=== PATIENT | male | born 2000 | race Caucasian/White ===

== ENCOUNTER 2022-06-06 17:52 | Emergency (ER) | payer BC, SELFPAY ==
[2022-06-06 18:02] VITALS: BP 149/86; PULSE 88; RESP 16; TEMP 36.5; O2SAT 100
--- NOTE | 2022-06-06 19:13 | ED.URI ---
HPI - URI/Sore Throat General Chief Complaint: Upper Respiratory Infection Stated Complaint: cough, sinus drainage, lower back pain Time Seen by Provider: 06/06/22 19:10 Source: patient, RN notes reviewed and old records reviewed Mode of arrival: ambulatory Limitations: no limitations History of Present Illness HPI Narrative: 22year old male who presents to [facility] care with complaints of cough, runny nose and sneezing since Friday. Patient reports that his cough is dry and harsh and he has pain to his left rib and scapular region when he coughs. He reports that he has not had a fever and he stats that he has been taking Mucinex and cough syrup for his symptoms. Patient reports that he has had Covid vaccinations and flu shot MD elicited complaint: cough, rhinorrhea, nasal congestion and other (pain left rib and scapula with cough) Pertinent past history: seasonal allergies Onset (ago): day(s) (3) Able to tolerate fluids by mouth: Yes Treatments prior to arrival: other (Mucinex and cough syrup) Related Data Home Medications Medication Instructions Recorded Confirmed dextroamphetamine-amphetamine 10 10 mg PO DAILY 06/06/22 06/06/22 mg tablet (Adderall) Allergies Allergy/AdvReac Type Severity Reaction Status Date / Time No Known Allergies Allergy Unverified 06/06/22 18:03 Review of Systems Review of Systems: CONSTITUTIONAL: Denies malaise, chills, sweats, or fever. EYES: Denies visual changes, redness, or discharge. ENT: Reports rhinorrhea, congestion, no sinus pain, otalgia or sore throat. CARDIOVASCULAR: Denies chest pain, palpitations, or edema. RESPIRATORY: Reports cough.? Denies dyspnea.reports pain to left rib area and left scapula with cough GASTROINTESTINAL: Denies abdominal pain, nausea, vomiting, diarrhea SKIN: Denies rash or itching. MUSCULOSKELETAL: Denies myalgia. NEUROLOGIC: Denies headache. All systems reviewed & are unremarkable except as noted in HPI and below PMFSH Past Medical History Medical History (Updated 06/11/22 @ 14:36 by Addis Palacio NP) ADHD (attention deficit hyperactivity disorder) JAYLENE (generalized anxiety disorder) Pollen allergies Family History Family History Father Hypertension Mother Hypertension Depression Grandparent Diabetes mellitus Social History Social History (Updated 08/09/21 @ 15:39 by Penelope Hernandez) Social History: Single Smoking status: Never smoker Second hand tobacco smoke exposure: No Alcohol intake: current Alcohol use details: Socially Substance use: never Substance use type: does not use Gender identity (if verbalized by the patient): Male Sexual Orientation (if Verbalized by the Patient): Straight or Heterosexual Comments At time of signature, agree with nursing past medical, surgical, social and family history. There is no relevant family history pertinent to the presenting complaint Exam Narrative: GENERAL: Well-appearing, well-nourished, and in no acute distress. HEAD: Normocephalic EYES: PERRLA, conjunctivae clear ENT: Nares clear, turbinates edematous and erythematous, clear discharge. Mucous membranes moist. TM pearly mata with dull light reflex bilaterally; no tragal tenderness. Oropharynx erythematous without lesions. Tonsils not enlarged and without exudate, no drooling, no hoarseness, no trismus, uvula midline.post nasal drainage NECK: Supple. No lymphadenopathy CHEST: Clear to auscultation, breath sounds equal. No wheezing, rhonchi, rales, or stridor. No respiratory distress, speaks in full sentences.harsh cough SAO2 100% on room air HEART: Regular rate and rhythm. No murmur heard. SKIN: Warm, dry, no rash. NEURO: Alert and oriented x3. PSYCH: Normal mood and affect Course Course Emergency Course: Patient is aware of diagnosis, understands and agrees to treatment plan.? Anticipatory guidance given.? Patient agrees to
== END 2022-06-06 19:33 | disposition home or self-care (01) ==
PROVIDERS: Emergency Provider Registered Nurse; PCP Family Medicine
DX: J06.9 Acute upper respiratory infection, unspecified (principal); R05.1 Acute cough; M94.0 Chondrocostal junction syndrome [Tietze]
CPT/HCPCS: 99213; G0463

== ENCOUNTER 2022-08-26 11:04 | Emergency (ER) | payer BC, SELFPAY ==
[2022-08-26 11:16] VITALS: BP 126/82; PULSE 83; RESP 16; TEMP 37.3; O2SAT 100
--- NOTE | 2022-08-26 11:20 | ED.URI ---
HPI - URI/Sore Throat General Chief Complaint: Upper Respiratory Infection Stated Complaint: cough, sore throat Time Seen by Provider: 08/26/22 11:20 Source: patient Mode of arrival: ambulatory Limitations: no limitations History of Present Illness HPI Narrative: Rigoberto is a 22-year-old male patient presenting to clinic today with complaints of cough and sore throat times 2-3 days. He denies any known fever or chills. He denies any known exposure day by 1 COVID, strep, or influenza. MD elicited complaint: sore throat and nasal congestion Related Data Home Medications Medication Instructions Recorded Confirmed dextroamphetamine-amphetamine 10 10 mg PO DAILY 06/06/22 08/26/22 mg tablet (Adderall) Allergies Allergy/AdvReac Type Severity Reaction Status Date / Time No Known Allergies Allergy Unverified 08/26/22 11:20 Review of Systems Review of Systems: Pertinent positives per HPI. Patient denies any fever, chills, rash, headache, visual changes, dizziness, cough, shortness of breath, chest pain, palpitations, nausea, vomiting, diarrhea, constipation, abdominal pain, or any urinary issues. PMFSH Past Medical History Medical History ADHD (attention deficit hyperactivity disorder) JAYLENE (generalized anxiety disorder) Pollen allergies Family History Family History Father Hypertension Mother Hypertension Depression Grandparent Diabetes mellitus Social History Social History Social History: Single Smoking status: Never smoker Second hand tobacco smoke exposure: No Alcohol intake: current Alcohol use details: Socially Substance use: never Substance use type: does not use Living arrangements: with family Occupation/Education: occupation Gender identity (if verbalized by the patient): Male Sexual Orientation (if Verbalized by the Patient): Straight or Heterosexual Comments At the time of my signature, I reviewed and agree with the nursing past medical, surgical, social, and family history. There is no relevant family history pertinent to the patient complaint. Exam Narrative: General: Well-developed, well nourished, in no apparent distress Head: Normocephalic, atraumatic Eyes: Pupils equally round and reactive to light bilaterally, EOM intact, sclera and conjunctive clear, no discharge, lids normal Ears: TMs intact and clear, ear canals clear, no drainage, grossly hearing normal. Nose: Nares patent, clear nasal discharge, no inflammation, no sinus tenderness. Mouth: Oral pharynx without lesions or masses, good dentition, MMM. Oropharynx mildly red with bilateral tonsillar enlargement without exudate Neck: Supple, trachea midline, no enlargement of anterior or posterior cervical nodes, no thyroid masses or goiter palpable. Cardio: Regular rate and rhythm, s1 and s2 normal, no murmur appreciated. Resp: Clear to auscultation bilaterally, no rhonchi, rales, wheezing or rubs Course Course Emergency Course: Portions of this record may have been created with voice recognition software. Level of Care: Express Care Visit Vital Signs Vital signs: Vital Signs Temperature 37.3 C 08/26/22 11:16 Pulse Rate 83 08/26/22 11:16 Respiratory Rate 16 08/26/22 11:16 Blood Pressure 126/82 08/26/22 11:16 Pulse Oximetry 100 08/26/22 11:16 Oxygen Delivery Room Air 08/26/22 11:16 Temperature 37.3 C 08/26/22 11:16 Pulse Rate 83 08/26/22 11:16 Respiratory Rate 16 08/26/22 11:16 Blood Pressure 126/82 08/26/22 11:16 Pulse Oximetry 100 08/26/22 11:16 Oxygen Delivery Room Air 08/26/22 11:16 Vital signs reviewed MDM - URI/Sore Throat MDM Narrative Medical decision making narrative: At the time of visit patient is resting comfortably on the exam table. Strep screen
== END 2022-08-26 11:42 | disposition home or self-care (01) ==
PROVIDERS: Emergency Provider Nurse Practitioner Family
DX: J02.9 Acute pharyngitis, unspecified (principal); J06.9 Acute upper respiratory infection, unspecified; R05.9 Cough, unspecified; F90.9 Attention-deficit hyperactivity disorder, unspecified type
CPT/HCPCS: 87081; 87880; 99213; G0463

== ENCOUNTER 2023-12-28 11:00 | Emergency (ER) | payer BC, SELFPAY ==
[2023-12-28 11:08] VITALS: BP 126/83; PULSE 98; RESP 16; TEMP 37.2; O2SAT 100
--- NOTE | 2023-12-28 11:13 | ED.URI ---
HPI - URI/Sore Throat General Chief Complaint: Upper Respiratory Infection Stated Complaint: Sinus Infection Symptoms Time Seen by Provider: 12/28/23 11:10 Source: patient Mode of arrival: ambulatory Limitations: no limitations History of Present Illness HPI Narrative: Rigoberto is a 23-year-old male patient presenting to the clinic today with complaints of sinus congestion, sinus pressure, and green nasal drainage. Reports symptoms started 4 days ago. Denies any fever or chills. Has started taking Bev D and that has helped the symptoms some. States he is going on vacation next week and is hoping to stop the sinus infection prior to that. MD elicited complaint: sore throat and nasal congestion Related Data Home Medications Medication Instructions Recorded Confirmed dextroamphetamine-amphetamine 10 10 mg PO DAILY 06/06/22 03/11/23 mg tablet (Adderall) Allergies Allergy/AdvReac Type Severity Reaction Status Date / Time No Known Allergies Allergy Verified 12/28/23 11:13 Review of Systems Review of Systems: Pertinent positives per HPI. Patient denies any fever, chills, rash, headache, visual changes, dizziness, cough, shortness of breath, chest pain, palpitations, nausea, vomiting, diarrhea, constipation, abdominal pain, or any urinary issues. [facility] Past Medical History Medical History ADHD (attention deficit hyperactivity disorder) JAYLENE (generalized anxiety disorder) Pollen allergies Family History Family History Father Hypertension Mother Hypertension Depression Grandparent Diabetes mellitus Social History Social History Social History: Single Smoking status: Never smoker Second hand tobacco smoke exposure: No Alcohol intake: current Alcohol use details: Socially Substance use: never Substance use type: does not use Living arrangements: with family Occupation/Education: occupation Gender identity (if verbalized by the patient): Male Sexual Orientation (if Verbalized by the Patient): Straight or Heterosexual Comments At the time of my signature, I reviewed and agree with the nursing past medical, surgical, social, and family history. There is no relevant family history pertinent to the patient complaint. Exam Narrative: General: Well-developed, well nourished, in no apparent distress Head: Normocephalic, atraumatic Eyes: Pupils equally round and reactive to light bilaterally, EOM intact, sclera and conjunctive clear, no discharge, lids normal Ears: TMs intact and congested, ear canals clear, no drainage, grossly hearing normal. Nose: Nares patent, clear nasal discharge, moderate to severe inflammation, maxillary sinus tenderness. Mouth: Oral pharynx without lesions or masses, good dentition, MMM. Neck: Supple, trachea midline, no enlargement of anterior or posterior cervical nodes, no thyroid masses or goiter palpable. Cardio: Regular rate and rhythm, s1 and s2 normal, no murmur appreciated. Resp: Clear to auscultation bilaterally, no rhonchi, rales, wheezing or rubs Course Course Emergency Course: Portions of this record may have been created with voice recognition software. Level of Care: Express Care Visit Vital Signs Vital signs: Vital Signs Temperature 37.2 C 12/28/23 11:08 Pulse Rate 98 12/28/23 11:08 Respiratory Rate 16 12/28/23 11:08 Blood Pressure 126/83 12/28/23 11:08 Pulse Oximetry 100 12/28/23 11:08 Temperature 37.2 C 12/28/23 11:08 Pulse Rate 98 12/28/23 11:08 Respiratory Rate 16 12/28/23 11:08 Blood Pressure 126/83 12/28/23 11:08 Pulse Oximetry 100 12/28/23 11:08 Vital signs reviewed MDM - URI/Sore Throat MDM Narrative Medical decision making narrative: At the time of visit patient is resting comfortably on the exam
== END 2023-12-28 11:16 | disposition home or self-care (01) ==
PROVIDERS: Emergency Provider Nurse Practitioner Family; PCP Nurse Practitioner Family
DX: J32.9 Chronic sinusitis, unspecified (principal); F90.9 Attention-deficit hyperactivity disorder, unspecified type
CPT/HCPCS: 99213; G0463

== ENCOUNTER 2024-11-08 16:36 | Emergency (ER) | payer BC, SELFPAY ==
[2024-11-08 16:51] VITALS: BP 123/78; PULSE 87; RESP 16; TEMP 36.3; O2SAT 100
[2024-11-08 17:20] LABS: EDINFLUASCREEN Negative (Negative); EDINFLUBSCREEN Negative (Negative); EDSTREPNEGPOS1 Negative (Negative)
--- NOTE | 2024-11-08 17:30 | ED_ITS ---
HPI - URI/Sore Throat General Chief Complaint: Upper Respiratory Infection Stated Complaint: sinus congestion Time Seen by Provider: 11/08/24 17:20 Source: patient and RN notes reviewed Mode of arrival: ambulatory Limitations: no limitations History of Present Illness HPI Narrative: 24-year-old male presents Express Care complaining of upper respiratory symptoms for 10 days. Patient reports having a sore throat, productive cough, nasal congestion, voice hoarseness. Patient has usesing Flonase, Zyrtec, the Bev D over [id number] for symptom management. He says he is starting to feel better however symptoms are persisting. He reports coughing up brown yellowish sputum. He says his cough is worse in the morning gets better throughout the day. He denies any ear pain, chest pain, shortness of breath, fevers, body aches, chills. Significant past medical history includes ADHD. Patient took a rapid COVID at home and said it was negative. Related Data Home Medications ?Medication ?Instructions ?Recorded ?Confirmed ?Last Taken ?Type dextroamphetamine-amphetamine 10 15 mg PO DAILY 01/12/24 11/08/24 Unknown History mg tablet (Adderall) Allergies Allergy/AdvReac Type Severity Reaction Status Date / Time No Known Allergies Allergy Verified 11/08/24 16:52 Review of Systems Review of Systems: CONSTITUTIONAL: Denies fever, chills, or sweats. EYES: Denies visual changes, redness, or discharge. ENT: Denies rhinorrhea or otalgia. Positive for sore throat and congestion. CARDIOVASCULAR: Denies chest pain, palpitations, or edema. RESPIRATORY: Positive for productive cough. Negative for dyspnea. GASTROINTESTINAL: Denies abdominal pain, nausea, vomiting, or diarrhea. GENITOURINARY: Denies dysuria or hematuria. SKIN: Denies rash or itching. MUSCULOSKELETAL: Denies back pain, joint pain, or myalgia. NEUROLOGIC: Denies headache, numbness, or weakness. PSYCHIATRIC: Denies anxiety or depression. All other systems reviewed are negative, except as documented in HPI. [facility] Past Medical History Medical History ADHD (attention deficit hyperactivity disorder) Pollen allergies JAYLENE (generalized anxiety disorder) Family History Family History Father Hypertension Mother Hypertension Depression Grandparent Diabetes mellitus Social History Social History Social History: Single Smoking status: Never smoker Second hand tobacco smoke exposure: No Alcohol intake: current Alcohol use details: Socially Substance use: never Substance use type: does not use Living arrangements: with family Occupation/Education: occupation Gender identity (if verbalized by the patient): Male Sexual Orientation (if Verbalized by the Patient): Straight or Heterosexual Comments At the time of my signature, I reviewed and agree with the nursing past medical, surgical, social, and family history. There is no relevant family history pertinent to the patient complaint. Exam Narrative: GENERAL: This is a well-nourished, well-developed adult, in no apparent distress. They are non ill-appearing, nontoxic appearing. HEAD: normocephalic, atraumatic. EYES: Sclera clear/white. Vision is grossly intact. Extraocular movements intact EARS: External ears normal, auditory canals clear and without drainage, TMs normal without perforation. Hearing grossly intact. NOSE: External nose normal with no obvious nasal discharge, nasal turbinates are erythematous, no rhinorrhea. THROAT: Mucous membranes moist, posterior pharynx clear without redness or swelling. No exudate. Postnasal drip present. Uvula midline NECK: Neck supple, non-tender without lymphadenopathy, masses or thyromegaly. CARDIOVASCULAR: Regular rate and rhythm without murmurs, gallops, or rubs. RESPIRATORY: Clear to auscultation. Breath sounds equal bilaterally. No wheezes, rales, or rhonchi. SKIN: warm, Dry, intact with no suspicious lesions or rash, good texture and turgor. NEURO: awake, alert, and oriented to person, place and time. There were no obvious focal neurologic abnormalities. EXTREMITIES: No joint tenderness, effusion, or edema noted. Course Course Level of Care: Express Care Visit Vital Signs Vital signs: Vital Signs Temperature 97.4 F L 11/08/24 16:51 Pulse Rate 87 11/08/24 16:51 Respiratory Rate 16 11/08/24 16:51 Blood Pressure 123/78 11/08/24 16:51 Pulse Oximetry 100 11/08/24 16:51 Oxygen Delivery Room Air 04/21/25 16:51 Temperature 97.4 F L 11/08/24 16:51 Pulse Rate 87 11/08/24 16:51 Respiratory Rate 16 11/08/24 16:51 Blood Pressure 123/78 11/08/24 16:51 Pulse Oximetry 100 11/08/24 16:51 Oxygen Delivery Room Air 11/08/24 16:51 Reviewed MDM - URI/Sore Throat MDM Narrative Medical decision making narrative: Rapid influenza and rapid strep were negative. Throat culture is pending. Given patient's length of symptoms it is likely that he has a bacterial sinusitis. Will treat empirically with Augmentin. Discussed physical exam findings. Advised supportive measures and signs/symptoms to go to the ER. Pt is appropriate for outpt treatment and f/u. Differential Diagnosis Differential diagnosis: Likely upper respiratory infection, sinusitis and pharyngitis Lab Data Attestation: I reviewed the patient's lab results. Labs: Lab Results 11/08/24 Range/Units 16:56 POC Influenza A Ag Negative (Negative) POC Influenza B Ag Negative (Negative) POC Grp A Strep Screen Negative (Negative) Critical Care Time Critical Care Time Critical Care Time: No Discharge Plan Discharge Clinical Impression: Rhinosinusitis Patient Disposition: Home Condition: Stable Instructions: Antibiotic Form, Rhinosinusitis (ED) Additional Instructions: Your flu swab is negative. Rapid strep is negative. A throat culture will be sent off and you will be contacted if the culture is positive. Take the antibiotics as directed and complete the course even if you start to feel better. You may use a Neti pot saline rinse 3 times a day. Continue to take Tylenol or Motrin for pain. Use a humidifier or vaporizer at night. Drink plenty of water. 8-10 glasses per day. Use flonase 2 times per day for 5 days then as needed Take mucinex 2 times per day and be sure to take with 8oz of water. Follow up with Primary provider if not getting better. Please go to the ER if you develop worsening symptoms or any other concerns. Patient Language: Czech Prescriptions: New amoxicillin-pot clavulanate 875-125 mg tablet 1 tablet PO Q12H 7 Days Qty: 14 0RF No Action dextroamphetamine-amphetamine [Adderall] 10 mg tablet 15 mg PO DAILY Follow-up/Referrals: Juju Hdez, [employer] [Primary Care Provider] - Time of Disposition: 17:27
== END 2024-11-08 17:30 | disposition home or self-care (01) ==
PROVIDERS: PCP Nurse Practitioner Family
DX: J32.9 Chronic sinusitis, unspecified (principal); F90.9 Attention-deficit hyperactivity disorder, unspecified type
CPT/HCPCS: 87081; 87804; 87880; 99213; G0463